=== PATIENT | female | born 1980 | race Caucasian/White ===

== ENCOUNTER 2017-01-26 15:06 | Emergency (ER) | payer OTHER ==
[~2017-01-26] VITALS: Wt 81.6 kg
[~2017-01-26 15:06] MED LIST: LAMOTRIGINE100 MG PO; LOSARTAN POTASS50 M1 PO; NEURONTIN600 MG PO; PREDNISONE10 MG PO; RANITIDINE HYD300 MG PO; ROBITUSSIN AC 110 ML PO; TRAZODONE50 MG PO; VENTOLIN H0.09 MG/AC INH; Ventolin 02.5 MG/3 M INH
[2017-01-26] MEDS ORDERED: NEURONTIN300 MG PO (15:11)
[2017-01-26] MEDS ORDERED: ARTHROTEC50 MG PO (15:11)
[2017-01-26] MEDS ORDERED: OMEPRAZOLE40 MG PO (15:11)
[2017-01-26] MEDS ORDERED: SERTRALINE HYD100 MG PO (15:11)
[2017-01-26] MEDS ORDERED: NAPROSYN500 MG PO (15:35)
== END 2017-01-26 16:29 | disposition home or self-care (01) ==
LOC: ED 15:06
DX: S80.02XA Contusion of left knee, initial encounter (principal); R03.0 Elevated blood-pressure reading, without diagnosis of hypertension; F17.200 Nicotine dependence, unspecified, uncomplicated; Z88.8 Allergy status to other drugs, medicaments and biological substances; Z79.899 Other long term (current) drug therapy; W01.0XXA Fall on same level from slipping, tripping and stumbling without subsequent striking against object, initial encounter; Y93.89 Activity, other specified; Y92.89 Other specified places as the place of occurrence of the external cause; Y99.8 Other external cause status

== ENCOUNTER 2017-11-08 16:15 | Inpatient (IN) | payer OTHER ==
[~2017-11-08] VITALS: Ht 160 cm; Wt 65.9 kg
[~2017-11-08 16:15] MED LIST changes: +ARTHROTEC50 MG PO; +NAPROSYN500 MG PO; +NEURONTIN300 MG PO; +OMEPRAZOLE40 MG PO; +SERTRALINE HYD100 MG PO
[2017-11-08 16:24] VITALS: BP 111/68
[2017-11-08 16:36] LABS: BASO # 0.1 10*3/uL (0.0-0.1); BASO % 0.7 % (0.0-1.0); EOS # 0.4 10*3/uL (0.0-0.4); EOS % 4.1 % (1.0-4.0); HEMATOCRIT 40.5 % (37.0-47.0); HEMOGLOBIN 13.6 g/dl (12.0-16.0); LYMPH # 2.7 10*3/uL (1.3-4.4); LYMPH % 29.6 % (27.0-41.0); MEAN CELL VOLUME 85.8 fl (81.0-99.0); MEAN CORPUSCULAR HGB 28.8 pg (27.0-31.0); MEAN CORPUSCULAR HGB CONC 33.6 g/dl (33.0-37.0); MEAN PLATELET VOLUME 10.2 fl (9.6-12.3); MONO # 0.6 10*3/uL (0.1-1.0); MONO % 6.2 % (3.0-9.0); NEUT # 5.4 10*3/uL (2.3-7.9); NEUT % 59.2 % (47.0-73.0); PLATELET COUNT AUTOMATED 191 10*3/uL (130-400); RED BLOOD COUNT 4.72 10*6/uL (4.10-5.10); RED CELL DISTRI WIDTH 13.1 % (0-14.5); WHITE BLOOD COUNT 9.2 10*3/uL (4.8-10.8)
[2017-11-08 16:45] LABS: ACT PARTIAL THROMBO TIME 26.8 SECONDS (20.8-31.5)
[2017-11-08 16:53] LABS: ALBUMIN 4.3 gm/dl (3.1-4.5); ALKALINE PHOSPHATASE 87 U/L (45-117); BUN 15 mg/dl (7-24); CHLORIDE 106 mmol/L (98-107); CREATININE 0.76 mg/dL (0.55-1.02); SGOT/AST 15 IU/L (3-35); SGPT/ALT 20 U/L (12-78); SODIUM 139 mmol/L (136-145); TOTAL PROTEIN 7.5 gm/dL (6.4-8.2)
[2017-11-08 16:57] LABS: TROPONIN I < 0.015 ng/ml (<0.045)
[2017-11-08 17:30] VITALS: BP 114/77
[2017-11-08 18:30] VITALS: BP 121/41
[2017-11-08 19:07] VITALS: BP 121/41
[2017-11-08 20:00] VITALS: BP 103/65
[2017-11-08 22:44] LABS: URINE AMPHETAMINES < 1000 (1000ng/ml); URINE BARBITURATES < 200 (200ng/ml); URINE BENZODIAZEPINES < 200 (200ng/ml); URINE CANNABINOIDS (THC) > 50 (50ng/ml); URINE COCAINE > 300 (300ng/ml); URINE METHADONE < 300 (300ng/ml); URINE OPIATES > 300 (300ng/ml)
[2017-11-08 22:45] LABS: URINE PHENCYCLIDINE < 25 (25ng/ml)
[2017-11-09] VITALS: BP 99/52
[2017-11-09 06:37] LABS: BASO # 0.1 10*3/uL (0.0-0.1); BASO % 0.6 % (0.0-1.0); EOS # 0.4 10*3/uL (0.0-0.4); EOS % 4.2 % (1.0-4.0); HEMATOCRIT 38.1 % (37.0-47.0); HEMOGLOBIN 12.6 g/dl (12.0-16.0); LYMPH # 3.2 10*3/uL (1.3-4.4); LYMPH % 35.6 % (27.0-41.0); MEAN CORPUSCULAR HGB 28.8 pg (27.0-31.0); MEAN CORPUSCULAR HGB CONC 33.1 g/dl (33.0-37.0); MEAN PLATELET VOLUME 11.4 fl (9.6-12.3); MONO # 0.7 10*3/uL (0.1-1.0); MONO % 7.2 % (3.0-9.0); NEUT # 4.8 10*3/uL (2.3-7.9); NEUT % 52.3 % (47.0-73.0); PLATELET COUNT AUTOMATED 182 10*3/uL (130-400); RED BLOOD COUNT 4.38 10*6/uL (4.10-5.10); RED CELL DISTRI WIDTH 13.2 % (0-14.5); WHITE BLOOD COUNT 9.1 10*3/uL (4.8-10.8)
[2017-11-09 06:55] LABS: PHOSPHOROUS 3.4 mg/dL (2.5-4.9); THYROID STIM HORMONE (HS) 0.497 uIU/ml (0.358-4.75)
[2017-11-09 07:30] LABS: VITAMIN D, 25-HYDROXY 12.1 ng/mL (30-100)
[2017-11-09 08:00] VITALS: BP 120/66
[2017-11-09 12:00] VITALS: BP 124/54
[2017-11-09] MEDS ORDERED: SIMVASTATIN20 MG PO (13:48)
[2017-11-09] MEDS ORDERED: ASPIRIN ADULT L81 M2 PO (13:48)
[2017-11-09] MEDS ORDERED: VITAMIN D31000 UNIT PO (13:48)
== END 2017-11-09 14:31 | disposition home or self-care (01) | DRG 918 ==
LOC: ED 16:15 → 5E 18:31 → EDHOLD 18:31 → 5E 18:41
PROVIDERS: Emergency Medicine; Hospitalist
PROC: 4A02XM4 Measurement of Cardiac Total Activity, External Approach (ICD-10-PCS; principal; 2017-11-09)
PROC: 3E073KZ Introduction of Other Diagnostic Substance into Coronary Artery, Percutaneous Approach (ICD-10-PCS; 2017-11-09)
DX: T40.5X1A Poisoning by cocaine, accidental (unintentional), initial encounter (principal); D72.1 Eosinophilia; F11.90 Opioid use, unspecified, uncomplicated; F12.10 Cannabis abuse, uncomplicated; E83.41 Hypermagnesemia; G44.209 Tension-type headache, unspecified, not intractable; K21.9 Gastro-esophageal reflux disease without esophagitis; I10 Essential (primary) hypertension; K58.0 Irritable bowel syndrome with diarrhea; M79.7 Fibromyalgia; E78.2 Mixed hyperlipidemia; R25.2 Cramp and spasm; J45.909 Unspecified asthma, uncomplicated; F32.9 Major depressive disorder, single episode, unspecified; F17.200 Nicotine dependence, unspecified, uncomplicated; Z88.8 Allergy status to other drugs, medicaments and biological substances; Z91.09 Other allergy status, other than to drugs and biological substances; Z79.899 Other long term (current) drug therapy; Z90.710 Acquired absence of both cervix and uterus; Z90.49 Acquired absence of other specified parts of digestive tract; Z82.49 Family history of ischemic heart disease and other diseases of the circulatory system; Z79.82 Long term (current) use of aspirin; Z71.6 Tobacco abuse counseling; Y92.89 Other specified places as the place of occurrence of the external cause; Z66 Do not resuscitate; Z51.5 Encounter for palliative care; F14.10 Cocaine abuse, uncomplicated

== ENCOUNTER 2019-05-17 16:03 | Inpatient (IN) | payer OTHER ==
[~2019-05-17] VITALS: Ht 157.5 cm; Wt 76.7 kg
[~2019-05-17 16:03] MED LIST changes: +ASPIRIN ADULT L81 M2 PO; +SIMVASTATIN20 MG PO; +VITAMIN D31000 UNIT PO
[2019-05-17 16:05] VITALS: BP 167/95
[2019-05-17 16:19] LABS: BASO # 0.1 10*3/uL (0.0-0.1); BASO % 0.7 % (0.0-1.0); EOS # 0.4 10*3/uL (0.0-0.4); EOS % 4.5 % (1.0-4.0); HEMATOCRIT 38.5 % (37.0-47.0); HEMOGLOBIN 13.1 g/dl (12.0-16.0); LYMPH # 2.9 10*3/uL (1.3-4.4); LYMPH % 30.9 % (27.0-41.0); MEAN CELL VOLUME 89.7 fl (81.0-99.0); MEAN CORPUSCULAR HGB 30.5 pg (27.0-31.0); MEAN PLATELET VOLUME 11.3 fl (9.6-12.3); MONO # 0.6 10*3/uL (0.1-1.0); NEUT # 5.4 10*3/uL (2.3-7.9); NEUT % 57.7 % (47.0-73.0); PLATELET COUNT AUTOMATED 171 10*3/uL (130-400); RED BLOOD COUNT 4.29 10*6/uL (4.10-5.10); RED CELL DISTRI WIDTH 12.9 % (0-14.5); WHITE BLOOD COUNT 9.4 10*3/uL (4.8-10.8)
[2019-05-17 16:34] LABS: ACT PARTIAL THROMBO TIME 27.7 SECONDS (20.0-32.1); INTERNATIONAL NORM RATIO 0.9 (2.0-3.5)
[2019-05-17 16:41] LABS: ALBUMIN 3.8 gm/dl (3.1-4.5); ALKALINE PHOSPHATASE 97 U/L (45-117); BUN 13 mg/dl (7-24); CHLORIDE 108 mmol/L (98-107); CREATININE 0.87 mg/dL (0.55-1.02); POTASSIUM 3.7 mmol/L (3.5-5.1); SGOT/AST 6 IU/L (3-35); SGPT/ALT 12 U/L (12-78); SODIUM 141 mmol/L (136-145)
[2019-05-17 16:44] LABS: TROPONIN I < 0.015 ng/ml (<0.045)
[2019-05-17 18:00] VITALS: BP 148/88
[2019-05-17 18:45] VITALS: BP 136/79
--- NOTE | 2019-05-17 18:45 | NUR ---
A 38, admitted to , under the services of MILLIE Lorenz DO with a diagnosis of CHEST PAIN. Chief complaint is CHEST PAIN. Patient arrived via bed from ER. Monitor applied. Initial assessment completed. Vital signs taken and recorded. MILLIE LORENZ DO notified of admission to the unit. Orders received. See assessment for past medical history, medications and allergies. Patient and/or family oriented to unit. Clothing/patient valuable form completed. FAUZIA DOYLE
[2019-05-17] MEDS ORDERED: 24 HOUR ALLER15.8 ML INH (19:04)
[2019-05-17] MEDS ORDERED: ZOFRAN4 MG PO (19:04)
[2019-05-17] MEDS ORDERED: SUMATRIPTAN SUC50 M1 PO (19:05)
[2019-05-17] MEDS ORDERED: DITROPAN XL10 MG PO (19:17)
[2019-05-17] MEDS ORDERED: VITAMIN D50000 UNIT PO (19:17)
[2019-05-17] MEDS ORDERED: TRAZODONE150 MG PO (19:18)
[2019-05-17] MEDS ORDERED: CLARITIN10 MG PO (19:19)
[2019-05-17] MEDS ORDERED: VALTREX1000 MG PO (19:20)
[2019-05-17] MEDS ORDERED: SIMVASTATIN40 MG PO (19:21)
[2019-05-17] MEDS ORDERED: BUPROPION HCL150 M3 PO (19:21)
--- NOTE | 2019-05-17 19:30 | NUR ---
INFORMED THAT I DISCUSSED AT LENGTH WITH PATIENT IN REGARD TO CODE STATUS. PATIENT STATED THAT SHE DOES NOT WANT TO BE PLACED ON LIFE SUPPORT IF CLINICALLY BRAIN . PATIENT STATED THAT IF HER HEART AND/OR LUNGS STOPPED WORKING SHE WOULD BE OK WITH CPR AND INTUBATION, JUST NOT ALF LIFE SUPPORT. STATED OK, HE WOULD TALK TO PATIENT AND CHANGE CODE STATUS ORDER ACCORDINGLY
--- NOTE | 2019-05-17 19:30 | NUR ---
INFORMED THAT PATIENTS HOME MEDS ARE VERIFIED BY PATIENT
[2019-05-17 20:00] VITALS: BP 136/79
[2019-05-17 21:01] LABS: URINE AMPHETAMINES < 1000 (1000ng/ml); URINE BARBITURATES < 200 (200ng/ml); URINE BENZODIAZEPINES > 200 (200ng/ml); URINE CANNABINOIDS (THC) > 50 (50ng/ml); URINE COCAINE < 300 (300ng/ml); URINE METHADONE < 300 (300ng/ml); URINE OPIATES < 300 (300ng/ml); URINE PHENCYCLIDINE < 25 (25ng/ml)
--- NOTE | 2019-05-17 22:57 | NUR ---
PATIENT REQUESTING MEDICATION FOR NAUSEA AND HEADACHE. ZOFRAN AND TLENOL ADMINISTERED PRESCRIBED. WILL MONITOR FOR EFFECTIVENESS.
--- NOTE | 2019-05-17 23:26 | NUR ---
DR ESPINOSA CALLED WITH BP 87/54. PATIENT ASYMPTOMATIC. WAITING FOR NEW ORDERS
--- NOTE | 2019-05-17 23:57 | NUR ---
PATIENT RESTING WITH EYES CLOSED. RESPIRATIONS EASY AD UNLABORED.CALL LIGHT WITHIN REACH. WILL MONITOR.
[2019-05-18] VITALS: BP 87/54
[2019-05-18 02:00] VITALS: BP 112/58
[2019-05-18 05:30] VITALS: BP 122/64
[2019-05-18 06:24] LABS: BASO % 0.5 % (0.0-1.0); EOS # 0.4 10*3/uL (0.0-0.4); EOS % 4.7 % (1.0-4.0); HEMATOCRIT 36.7 % (37.0-47.0); HEMOGLOBIN 12.1 g/dl (12.0-16.0); LYMPH # 2.7 10*3/uL (1.3-4.4); LYMPH % 35.7 % (27.0-41.0); MEAN CELL VOLUME 92.4 fl (81.0-99.0); MEAN CORPUSCULAR HGB 30.5 pg (27.0-31.0); MEAN PLATELET VOLUME 11.6 fl (9.6-12.3); MONO # 0.5 10*3/uL (0.1-1.0); NEUT # 3.9 10*3/uL (2.3-7.9); PLATELET COUNT AUTOMATED 150 10*3/uL (130-400); RED BLOOD COUNT 3.97 10*6/uL (4.10-5.10); WHITE BLOOD COUNT 7.4 10*3/uL (4.8-10.8)
[2019-05-18 07:05] LABS: ALBUMIN 3.3 gm/dl (3.1-4.5); BUN 14 mg/dl (7-24); CHLORIDE 111 mmol/L (98-107); CHOLESTEROL 208 mg/dL (<200); CREATININE 0.79 mg/dL (0.55-1.02); POTASSIUM 3.7 mmol/L (3.5-5.1); SGOT/AST 10 IU/L (3-35); SGPT/ALT 9 U/L (12-78); SODIUM 144 mmol/L (136-145); TOTAL PROTEIN 6.2 gm/dL (6.4-8.2); TRIGLYCERIDES 141 mg/dl (<150); VLDL CHOLESTEROL 28 mg/dL (6-40)
[2019-05-18 07:11] LABS: ACT PARTIAL THROMBO TIME 28.6 SECONDS (20.0-32.1); INTERNATIONAL NORM RATIO 0.9 (2.0-3.5)
[2019-05-18 07:12] LABS: ALKALINE PHOSPHATASE 76 U/L (45-117); FREE T4 0.88 ng/dl (0.76-1.46); HDL CHOLESTEROL 32 mg/dl (40-60); LDL CHOLESTEROL 148 mg/dL (9-159)
[2019-05-18 07:59] VITALS: BP 109/56
[2019-05-18 08:02] LABS: VITAMIN D, 25-HYDROXY 55.6 ng/mL (30-100)
--- NOTE | 2019-05-18 08:04 | NUR ---
PT REQUESTED IV ZOFRAN PER PRN ORDER FOR C/O NAUSEA. WILL MONITOR EFFECTIVENESS. VSS. CALL LIGHT WITHIN REACH.
--- NOTE | 2019-05-18 09:15 | NUR ---
ZOFRAN EFFECTIVE PER PT.
[2019-05-18 11:36] VITALS: BP 110/69
--- NOTE | 2019-05-18 13:46 | NUR ---
Discharge instructions reviewed with patient/family. Patient receptive and verbalizes understanding. Follow-up care arranged. Written instructions given to patient/family. OLI WHITE.
== END 2019-05-18 13:46 | disposition home or self-care (01) | DRG 391 ==
LOC: ED 16:03 → EDHOLD 18:09 → 4E 18:09
PROVIDERS: Emergency Medicine; Internal Medicine; ADMIT Family Medicine
DX: K21.9 Gastro-esophageal reflux disease without esophagitis (principal); J18.9 Pneumonia, unspecified organism; I16.0 Hypertensive urgency; R00.2 Palpitations; R11.0 Nausea; F17.210 Nicotine dependence, cigarettes, uncomplicated; J45.909 Unspecified asthma, uncomplicated; K58.0 Irritable bowel syndrome with diarrhea; K44.9 Diaphragmatic hernia without obstruction or gangrene; F32.9 Major depressive disorder, single episode, unspecified; E78.2 Mixed hyperlipidemia; G43.909 Migraine, unspecified, not intractable, without status migrainosus; I10 Essential (primary) hypertension; F41.9 Anxiety disorder, unspecified; E87.8 Other disorders of electrolyte and fluid balance, not elsewhere classified; E83.41 Hypermagnesemia; Z71.6 Tobacco abuse counseling; Z88.8 Allergy status to other drugs, medicaments and biological substances; Z91.09 Other allergy status, other than to drugs and biological substances; Z90.49 Acquired absence of other specified parts of digestive tract; Z90.710 Acquired absence of both cervix and uterus; Z82.49 Family history of ischemic heart disease and other diseases of the circulatory system; Z79.82 Long term (current) use of aspirin; Z79.899 Other long term (current) drug therapy

== ENCOUNTER 2020-03-09 09:59 | Emergency (ER) | payer OTHER ==
[~2020-03-09] VITALS: Ht 160 cm; Wt 68.0 kg
[~2020-03-09 09:59] MED LIST changes: +24 HOUR ALLER15.8 ML INH; +BUPROPION HCL150 M3 PO; +CLARITIN10 MG PO; +DITROPAN XL10 MG PO; +SIMVASTATIN40 MG PO; +SUMATRIPTAN SUC50 M1 PO; +TRAZODONE150 MG PO; +VALTREX1000 MG PO; +VITAMIN D50000 UNIT PO; +ZOFRAN4 MG PO
[2020-03-09 10:47] LABS: BASO # 0.1 10*3/uL (0.0-0.1); BASO % 0.6 % (0.0-1.0); EOS # 0.3 10*3/uL (0.0-0.4); EOS % 3.6 % (1.0-4.0); HEMATOCRIT 39.1 % (37.0-47.0); LYMPH # 2.5 10*3/uL (1.3-4.4); LYMPH % 30.2 % (27.0-41.0); MEAN CELL VOLUME 87.7 fl (81.0-99.0); MEAN CORPUSCULAR HGB 28.9 pg (27.0-31.0); MEAN PLATELET VOLUME 10.8 fl (9.6-12.3); MONO # 0.5 10*3/uL (0.1-1.0); MONO % 5.5 % (3.0-9.0); NEUT % 59.7 % (47.0-73.0); PLATELET COUNT AUTOMATED 173 10*3/uL (130-400); RED BLOOD COUNT 4.46 10*6/uL (4.10-5.10); RED CELL DISTRI WIDTH 12.8 % (0-14.5); WHITE BLOOD COUNT 8.3 10*3/uL (4.8-10.8)
[2020-03-09 11:03] LABS: ALBUMIN 3.5 gm/dl (3.1-4.5); ALKALINE PHOSPHATASE 90 U/L (45-117); BUN 18 mg/dl (7-24); CHLORIDE 112 mmol/L (98-107); CREATININE 0.88 mg/dL (0.55-1.02); LIPASE 129 U/L (73-393); POTASSIUM 3.9 mmol/L (3.5-5.1); SGOT/AST 17 IU/L (3-35); SGPT/ALT 22 U/L (12-78); SODIUM 140 mmol/L (136-145); TOTAL PROTEIN 6.9 gm/dL (6.4-8.2)
[2020-03-09 11:08] LABS: TROPONIN I < 0.015 ng/ml (<0.045)
[2020-03-09 12:12] LABS: BILIRUBIN NEGATIVE (NEGATIVE); BLOOD NEGATIVE (NEGATIVE); CLARITY CLEAR (CLEAR); COLOR YELLOW (YELLOW); GLUCOSE NEGATIVE (NEGATIVE); KETONE NEGATIVE (NEGATIVE); LEUKO ESTERASE NEGATIVE (NEGATIVE); NITRITE NEGATIVE (NEGATIVE); RBC 0-2 rbc/hpf (0-2); UROBILINOGEN 0.2 E.U./dl (0.2-1.0); WBC 0-2 wbc/hpf (0-5)
== END 2020-03-09 13:44 | disposition home or self-care (01) ==
LOC: ED 09:59
PROVIDERS: Nurse Practitioner
DX: B34.9 Viral infection, unspecified (principal); R19.7 Diarrhea, unspecified; F17.200 Nicotine dependence, unspecified, uncomplicated; Z79.899 Other long term (current) drug therapy; Z88.8 Allergy status to other drugs, medicaments and biological substances

== ENCOUNTER 2020-12-01 16:58 | Emergency (ER) | payer OTHER ==
[~2020-12-01] VITALS: Wt 64.9 kg
== END 2020-12-01 18:34 | disposition home or self-care (01) ==
LOC: ED 16:58
DX: S60.221A Contusion of right hand, initial encounter (principal); J45.909 Unspecified asthma, uncomplicated; I10 Essential (primary) hypertension; F17.200 Nicotine dependence, unspecified, uncomplicated; Z79.82 Long term (current) use of aspirin; Z79.899 Other long term (current) drug therapy; Z90.49 Acquired absence of other specified parts of digestive tract; Z90.711 Acquired absence of uterus with remaining cervical stump; Z98.890 Other specified postprocedural states; X58.XXXA Exposure to other specified factors, initial encounter; Y93.89 Activity, other specified; Y92.89 Other specified places as the place of occurrence of the external cause; Y99.8 Other external cause status

== ENCOUNTER 2020-12-07 12:44 | Observation (INO) | payer OTHER ==
[2020-12-07] VITALS (7 sets, daily range): BP systolic 102–167; BP diastolic 42–95
[~2020-12-07] VITALS: Ht 157.4 cm; Wt 63.7 kg
[2020-12-07 13:04] LABS: BASO % 0.3 % (0.0-1.0); EOS % 0.3 % (1.0-4.0); HEMATOCRIT 40.6 % (37.0-47.0); LYMPH # 2.4 10*3/uL (1.3-4.4); LYMPH % 21.4 % (27.0-41.0); MEAN CELL VOLUME 87.7 fl (81.0-99.0); MEAN CORPUSCULAR HGB 29.6 pg (27.0-31.0); MEAN CORPUSCULAR HGB CONC 33.7 g/dl (33.0-37.0); MEAN PLATELET VOLUME 11.1 fl (9.6-12.3); MONO # 0.9 10*3/uL (0.1-1.0); MONO % 7.7 % (3.0-9.0); NEUT # 7.9 10*3/uL (2.3-7.9); PLATELET COUNT AUTOMATED 184 10*3/uL (130-400); RED BLOOD COUNT 4.63 10*6/uL (4.10-5.10); RED CELL DISTRI WIDTH 13.2 % (0-14.5); WHITE BLOOD COUNT 11.2 10*3/uL (4.8-10.8)
[2020-12-07] MEDS ORDERED: ATORVASTATIN CA80 M1 PO (13:06)
[2020-12-07] MEDS ORDERED: OMEPRAZOLE40 MG PO (13:06)
[2020-12-07 13:15] LABS: ACT PARTIAL THROMBO TIME 29.3 SECONDS (20.0-32.1)
[2020-12-07 13:20] LABS: ALBUMIN 3.9 gm/dl (3.1-4.5); ALKALINE PHOSPHATASE 93 U/L (45-117); BUN 17 mg/dl (7-24); CHLORIDE 109 mmol/L (98-107); CREATININE 0.88 mg/dL (0.55-1.02); POTASSIUM 3.6 mmol/L (3.5-5.1); SGOT/AST 21 IU/L (3-35); SGPT/ALT 35 U/L (12-78); SODIUM 140 mmol/L (136-145); TOTAL PROTEIN 7.6 gm/dL (6.4-8.2)
[2020-12-07 13:24] LABS: TROPONIN I < 0.015 ng/ml (<0.045)
[2020-12-07 18:30] LABS: BILIRUBIN Negative (Negative); BLOOD Negative (Negative); CLARITY Clear (Clear); COLOR Yellow (Yellow); GLUCOSE Negative (Negative); KETONE Negative (Negative); LEUKO ESTERASE Trace (Negative); NITRITE Negative (Negative); SPECIFIC GRAVITY 1.015 (1.001-1.030); UROBILINOGEN 0.2 E.U./dl (0.0-1.0)
[2020-12-07 18:35] LABS: BACTERIA TRACE; RBC 0-2 rbc/hpf (0-2)
[2020-12-08] VITALS: BP 112/54
[2020-12-08 06:12] LABS: ALBUMIN 3.6 gm/dl (3.1-4.5); ALKALINE PHOSPHATASE 83 U/L (45-117); BUN 19 mg/dl (7-24); CHLORIDE 110 mmol/L (98-107); CHOLESTEROL 243 mg/dL (<200); CREATININE 0.79 mg/dL (0.55-1.02); HDL CHOLESTEROL 38 mg/dl (40-60); LDL CHOLESTEROL 182 mg/dL (9-159); POTASSIUM 3.5 mmol/L (3.5-5.1); SGOT/AST 22 IU/L (3-35); SGPT/ALT 38 U/L (12-78); SODIUM 141 mmol/L (136-145); TOTAL PROTEIN 6.8 gm/dL (6.4-8.2); TRIGLYCERIDES 113 mg/dl (<150); VLDL CHOLESTEROL 23 mg/dL (6-40)
[2020-12-08 06:18] LABS: FREE T4 0.92 ng/dl (0.76-1.46); THYROID STIM HORMONE (HS) 0.708 uIU/ml (0.358-4.75)
[2020-12-08 06:40] LABS: BASO % 0.5 % (0.0-1.0); EOS # 0.2 10*3/uL (0.0-0.4); EOS % 2.5 % (1.0-4.0); HEMATOCRIT 41.2 % (37.0-47.0); LYMPH # 3.5 10*3/uL (1.3-4.4); LYMPH % 42.2 % (27.0-41.0); MEAN CELL VOLUME 90.4 fl (81.0-99.0); MEAN CORPUSCULAR HGB 29.6 pg (27.0-31.0); MEAN CORPUSCULAR HGB CONC 32.8 g/dl (33.0-37.0); MEAN PLATELET VOLUME 11.4 fl (9.6-12.3); MONO # 0.7 10*3/uL (0.1-1.0); MONO % 8.3 % (3.0-9.0); NEUT # 3.9 10*3/uL (2.3-7.9); NEUT % 46.3 % (47.0-73.0); PLATELET COUNT AUTOMATED 180 10*3/uL (130-400); RED BLOOD COUNT 4.56 10*6/uL (4.10-5.10); RED CELL DISTRI WIDTH 13.4 % (0-14.5); WHITE BLOOD COUNT 8.4 10*3/uL (4.8-10.8)
[2020-12-08 07:16] LABS: VITAMIN D, 25-HYDROXY 35.2 ng/mL (30-100)
[2020-12-08 08:00] VITALS: BP 100/60; BP 90/60
[2020-12-08 12:00] VITALS: BP 107/71
[2020-12-08 14:09] LABS: URINE AMPHETAMINES < 1000 (1000ng/ml); URINE BARBITURATES < 200 (200ng/ml); URINE BENZODIAZEPINES < 200 (200ng/ml); URINE CANNABINOIDS (THC) > 50 (50ng/ml); URINE COCAINE > 300 (300ng/ml); URINE METHADONE < 300 (300ng/ml); URINE OPIATES < 300 (300ng/ml)
[2020-12-08 14:17] LABS: URINE PHENCYCLIDINE < 25 (25ng/ml)
[2020-12-08] MEDS ORDERED: FISH OIL 1,0001 EAC2 PO (14:27)
== END 2020-12-08 15:06 | disposition home or self-care (01) ==
LOC: ED 12:44 → EDHOLD 14:00 → 4E 17:49
PROVIDERS: Hospitalist; Internal Medicine; ADMIT Family Medicine; ATTEND Family Medicine
DX: R07.89 Other chest pain (principal); R11.0 Nausea; K21.9 Gastro-esophageal reflux disease without esophagitis; K58.0 Irritable bowel syndrome with diarrhea; J45.909 Unspecified asthma, uncomplicated; I10 Essential (primary) hypertension; E78.2 Mixed hyperlipidemia; F41.9 Anxiety disorder, unspecified; F31.9 Bipolar disorder, unspecified; R00.0 Tachycardia, unspecified; R73.9 Hyperglycemia, unspecified; F17.210 Nicotine dependence, cigarettes, uncomplicated; F12.90 Cannabis use, unspecified, uncomplicated; F14.10 Cocaine abuse, uncomplicated; Z79.82 Long term (current) use of aspirin; Z79.899 Other long term (current) drug therapy

== ENCOUNTER 2021-03-14 12:41 | Emergency (ER) | payer OTHER ==
[~2021-03-14] VITALS: Ht 157.4 cm; Wt 63.5 kg
[~2021-03-14 12:41] MED LIST changes: +ATORVASTATIN CA80 M1 PO; +FISH OIL 1,0001 EAC2 PO
[2021-03-14] MEDS ORDERED: IBUPROFEN600 MG PO (15:46)
[2021-03-14] MEDS ORDERED: HYDROCODONE-AC1 EAC1 PO (15:47)
== END 2021-03-14 15:58 | disposition home or self-care (01) ==
LOC: ED 12:41
DX: S52.502A Unspecified fracture of the lower end of left radius, initial encounter for closed fracture (principal); S52.612A Displaced fracture of left ulna styloid process, initial encounter for closed fracture; F17.200 Nicotine dependence, unspecified, uncomplicated; Z91.048 Other nonmedicinal substance allergy status; Z88.8 Allergy status to other drugs, medicaments and biological substances; Z79.899 Other long term (current) drug therapy; Z79.82 Long term (current) use of aspirin; Z90.49 Acquired absence of other specified parts of digestive tract; Z90.711 Acquired absence of uterus with remaining cervical stump; W01.0XXA Fall on same level from slipping, tripping and stumbling without subsequent striking against object, initial encounter; Y93.89 Activity, other specified; Y92.89 Other specified places as the place of occurrence of the external cause; Y99.8 Other external cause status

== ENCOUNTER 2022-09-30 08:53 | Emergency (ER) | payer OTHER ==
[~2022-09-30] VITALS: Ht 157.4 cm; Wt 61.2 kg
[~2022-09-30 08:53] MED LIST changes: +HYDROCODONE-AC1 EAC1 PO; +IBUPROFEN600 MG PO
[2022-09-30] MEDS ORDERED: CYCLOBENZAPRINE10 MG PO (09:26)
[2022-09-30] MEDS ORDERED: Percocet 325 MG1 TAB PO (09:26)
[2022-09-30] MEDS ORDERED: PREDNISONE10 MG PO (09:26)
== END 2022-09-30 10:14 | disposition home or self-care (01) ==
LOC: ED 08:53
DX: M54.41 Lumbago with sciatica, right side (principal); Z88.8 Allergy status to other drugs, medicaments and biological substances; Z90.49 Acquired absence of other specified parts of digestive tract; Z90.710 Acquired absence of both cervix and uterus; Z98.890 Other specified postprocedural states; F17.200 Nicotine dependence, unspecified, uncomplicated; F14.90 Cocaine use, unspecified, uncomplicated; F11.10 Opioid abuse, uncomplicated